=== PATIENT | female | born 1990 | race Caucasian/White ===

== ENCOUNTER 2024-02-28 08:22 | Emergency (ER) | payer OTHER ==
[~2024-02-28] VITALS: Ht 162.6 cm; Wt 68.5 kg
[2024-02-28] MEDS ORDERED: PRENTAB9 PO (08:35)
[2024-02-28] MEDS ORDERED: WELLTAB40 PO (08:35)
[2024-02-28] MEDS ORDERED: ACET1TAB55 PO (08:35)
[2024-02-28] MEDS: NS 1,000 ML IV ONE (10:14)
[2024-02-28 10:37] LABS: BASO # 0.1 10^3/uL (0.0-0.2); BASO % 0.8 % (0.0-1.0); EOS # 0.1 10^3/uL (0.0-0.5); EOS % 1.4 % (0.0-3.0); HEMOGLOBIN 12.4 g/dl (12.0-15.5); LYMPH % 31.2 % (24.0-44.0); MEAN CORPUSCULAR HGB CONC 33.5 g/dl (32.0-36.5); MEAN CORPUSCULAR VOLUME 95.4 fl (80.0-96.0); MONO # 0.5 10^3/uL (0.0-0.8); MONO % 7.4 % (2.0-8.0); NEUTROPHILS # 3.7 10^3/uL (1.5-8.5); NEUTROPHILS % 58.9 % (36.0-66.0); PLATELET COUNT, AUTOMATED 237 10^3/uL (150-450); RED BLOOD COUNT 3.88 10^6/uL (4.00-5.40); WHITE BLOOD COUNT 6.3 10^3/uL (4.0-10.0)
[2024-02-28 11:03] LABS: BLOOD UREA NITROGEN 9 MG/DL (9-23); CALCIUM LEVEL 9.3 MG/DL (8.5-10.1); CARBON DIOXIDE LEVEL 27 MMOL/L (20-31); CHLORIDE LEVEL 106 MMOL/L (98-107); CREATININE FOR GFR 0.67 MG/DL (0.55-1.30); GLOMERULAR FILTRATION RATE > 60.0 (>60); GLUCOSE, FASTING 90 MG/DL (60-100); MAGNESIUM LEVEL 1.8 MG/DL (1.8-2.4); POTASSIUM SERUM 4.3 MMOL/L (3.5-5.1); SODIUM LEVEL 140 MMOL/L (136-145)
[2024-02-28 11:04] LABS: THYROID STIMULATING HORMONE 1.709 uIU/ML (0.55-4.78)
[2024-02-28 11:57] VITALS: BP 119/82; TEMP 98.9; O2SAT 100
== END 2024-02-28 12:13 | disposition home or self-care (01) ==
LOC: M ED 08:22
DX: O26.51 Maternal hypotension syndrome, first trimester (principal); I45.10 Unspecified right bundle-branch block; M54.50 Low back pain, unspecified; Z88.5 Allergy status to narcotic agent; Z91.040 Latex allergy status; Z91.048 Other nonmedicinal substance allergy status; Z3A.01 Less than 8 weeks gestation of pregnancy; Z79.810 Long term (current) use of selective estrogen receptor modulators (SERMs); Z79.899 Other long term (current) drug therapy

== ENCOUNTER → 2024-03-20 | Outpatient (REF) | payer OTHER ==
[~2024-03-20] MED LIST: ACET1TAB55 PO; PRENTAB9 PO; WELLTAB40 PO
== END ==
LOC: M LAB REF 11:28
PROVIDERS: ATTEND Physician Assistant
DX: R30.0 Dysuria (principal)

== ENCOUNTER → 2024-04-16 | Outpatient (CLI) | payer OTHER | LOC: M CARPUL 10:23 | PROVIDERS: ATTEND Obstetrics & Gynecology | DX: G90.A Postural orthostatic tachycardia syndrome [POTS] (principal) ==

== ENCOUNTER → 2024-05-22 | Outpatient (CLI) | payer OTHER | LOC: M PLALAB 09:09 | PROVIDERS: ATTEND Obstetrics & Gynecology | DX: Z34.81 Encounter for supervision of other normal pregnancy, first trimester (principal) ==

== ENCOUNTER 2024-06-22 18:02 | Outpatient (CLI) | payer OTHER ==
[~2024-06-22] VITALS: Ht 162.6 cm; Wt 79.6 kg
[~2024-06-22 18:02] MED LIST changes: -ECOT81TA5 PO; -SERT25TA85 PO
[2024-06-22] MEDS ORDERED: SERT25TA85 PO (18:29)
[2024-06-22] MEDS ORDERED: ECOT81TA5 PO (18:29)
== END 2024-06-22 20:06 ==
LOC: M LDO 18:02
PROVIDERS: ATTEND Advanced Practice Midwife
DX: O26.892 Other specified pregnancy related conditions, second trimester (principal); O99.342 Other mental disorders complicating pregnancy, second trimester; O99.352 Diseases of the nervous system complicating pregnancy, second trimester; R25.2 Cramp and spasm; W01.0XXA Fall on same level from slipping, tripping and stumbling without subsequent striking against object, initial encounter; Y92.480 Sidewalk as the place of occurrence of the external cause; Y99.9 Unspecified external cause status; F41.8 Other specified anxiety disorders; M34.1 CR(E)ST syndrome; Z3A.21 21 weeks gestation of pregnancy
CPT/HCPCS: 59025; 76811; 76815; G0463

== ENCOUNTER → 2024-06-22 | Outpatient (CLI) | payer OTHER ==
[~2024-06-22] MED LIST changes: +ECOT81TA5 PO; +SERT25TA85 PO
== END ==
LOC: M WHC 07:27
PROVIDERS: ATTEND Obstetrics & Gynecology
DX: Z34.92 Encounter for supervision of normal pregnancy, unspecified, second trimester (principal)

== ENCOUNTER → 2024-07-17 | Outpatient (REF) | payer OTHER ==
[~2024-07-17] MED LIST changes: +ECOT81TA5 PO; +SERT25TA85 PO
[2024-07-17 14:53] LABS: Trichomonas vaginalis (AMP) NOT DETECTED (NEGATIVE)
[2024-07-17 15:17] LABS: GC DNA AMPLIFICATION NEGATIVE (NEGATIVE)
== END ==
LOC: M SFHCWAGY 12:32
PROVIDERS: ATTEND Obstetrics & Gynecology
DX: N89.9 Noninflammatory disorder of vagina, unspecified (principal); Z3A.25 25 weeks gestation of pregnancy

== ENCOUNTER → 2024-07-19 | Outpatient (CLI) | payer OTHER ==
[2024-07-19 10:51] LABS: HEMATOCRIT 34.3 % (36.0-47.0); HEMOGLOBIN 11.3 g/dl (12.0-15.5); MEAN CORPUSCULAR HEMOGLOBIN 31.7 pg (27.0-33.0); MEAN CORPUSCULAR HGB CONC 32.9 g/dl (32.0-36.5); MEAN CORPUSCULAR VOLUME 96.3 fl (80.0-96.0); PLATELET COUNT, AUTOMATED 256 10^3/uL (150-450); RED BLOOD COUNT 3.56 10^6/uL (4.00-5.40); WHITE BLOOD COUNT 11.2 10^3/uL (4.0-10.0)
== END ==
LOC: M PLALAB 08:13
PROVIDERS: ATTEND Nurse Practitioner Women's Health
DX: Z34.92 Encounter for supervision of normal pregnancy, unspecified, second trimester (principal)

== ENCOUNTER → 2024-08-08 | Outpatient (CLI) | payer OTHER | LOC: M RAD 14:23 | PROVIDERS: ATTEND Obstetrics & Gynecology | DX: Z34.93 Encounter for supervision of normal pregnancy, unspecified, third trimester (principal); Z3A.28 28 weeks gestation of pregnancy ==

== ENCOUNTER 2024-09-13 07:31 | Outpatient (CLI) | payer OTHER ==
[~2024-09-13] VITALS: Ht 162.6 cm; Wt 90.2 kg
[2024-09-13] MEDS ORDERED: FAMO40TA3 PO (07:51)
[2024-09-13 07:54] VITALS: BP 115/84
[2024-09-13] MEDS ORDERED: HOME MED LIST COMPLETE! XX SCH (07:55)
[2024-09-13 08:40] VITALS: BP 113/67
== END 2024-09-13 11:35 | disposition home or self-care (01) ==
LOC: M LDO 07:31
PROVIDERS: ATTEND Obstetrics & Gynecology
DX: O26.893 Other specified pregnancy related conditions, third trimester (principal); O99.343 Other mental disorders complicating pregnancy, third trimester; O99.353 Diseases of the nervous system complicating pregnancy, third trimester; O43.193 Other malformation of placenta, third trimester; R25.2 Cramp and spasm; Q79.62 Hypermobile Ehlers-Danlos syndrome; F41.8 Other specified anxiety disorders; M34.1 CR(E)ST syndrome; G90.A Postural orthostatic tachycardia syndrome [POTS]; Z3A.33 33 weeks gestation of pregnancy
CPT/HCPCS: 59025; 76815; G0463

== ENCOUNTER 2024-09-16 07:47 | Emergency (ER) | payer OTHER ==
[~2024-09-16] VITALS: Ht 162.6 cm; Wt 90.4 kg
[~2024-09-16 07:47] MED LIST changes: +FAMO40TA3 PO
[2024-09-16 09:24] LABS: BASO # 0.1 10^3/uL (0.0-0.2); BASO % 0.6 % (0.0-1.0); EOS # 0.1 10^3/uL (0.0-0.5); EOS % 0.9 % (0.0-3.0); HEMOGLOBIN 11.3 g/dl (12.0-15.5); LYMPH # 1.8 10^3/uL (1.5-5.0); LYMPH % 17.7 % (24.0-44.0); MEAN CORPUSCULAR HGB CONC 33.2 g/dl (32.0-36.5); MEAN CORPUSCULAR VOLUME 93.4 fl (80.0-96.0); MONO # 0.6 10^3/uL (0.0-0.8); MONO % 5.8 % (2.0-8.0); NEUTROPHILS # 7.4 10^3/uL (1.5-8.5); NEUTROPHILS % 73.3 % (36.0-66.0); PLATELET COUNT, AUTOMATED 206 10^3/uL (150-450); RED BLOOD COUNT 3.64 10^6/uL (4.00-5.40)
[2024-09-16 10:52] VITALS: BP 129/84; TEMP 97.3; O2SAT 97
[2024-09-16] MEDS ORDERED: CEPH500C PO (10:57)
== END 2024-09-16 11:05 | disposition home or self-care (01) ==
LOC: M ED 07:47
DX: O26.893 Other specified pregnancy related conditions, third trimester (principal); R10.9 Unspecified abdominal pain; R82.71 Bacteriuria; Z87.442 Personal history of urinary calculi; Z3A.34 34 weeks gestation of pregnancy; Z88.5 Allergy status to narcotic agent; Z91.040 Latex allergy status; Z91.048 Other nonmedicinal substance allergy status; Z79.899 Other long term (current) drug therapy

== ENCOUNTER → 2025-10-16 | Outpatient (CLI) | payer OTHER ==
[~2025-10-16] MED LIST changes: +CEPH500C PO; +COLA100C5 PO; +IBUP80TA PO; +OXYC1TAB23 PO; +SERT-141 PO; +TRAM50TA2 PO
== END ==
LOC: M PLAIMG 14:53
PROVIDERS: ATTEND Student in an Organized Health Care Education/Training Program
DX: M54.16 Radiculopathy, lumbar region (principal)